=== PATIENT | male | born 1980 | race Caucasian/White ===

== ENCOUNTER 2019-08-19 16:58 | Emergency (ER) | payer OTHER ==
[~2019-08-19] VITALS: Ht 172.7 cm; Wt 108.9 kg
--- NOTE | 2019-08-19 17:27 | NUR ---
Patient ambulated with stable gait. A/Ox4. Patient came for c/o asthma exacerbation, reports being on augmentin for the 10th day with no improvement, patient on steroids and albuterol inhaler is not working at home. Respiratory even and unlabored, wheezing noted in the right lobes. Denies any cp, n/v/d. Patient in bed at lowest position, sr upx2, call light within reach. Fall precautions implemented per protocol.
--- NOTE | 2019-08-19 17:29 | NUR ---
ERMD at bedside for MSE
[2019-08-19] MEDS ORDERED: predniSONE 20 MG TABLET ONE (17:37)
[2019-08-19] MEDS ORDERED: IPRATROPIUM BROMIDE 0.5 MG/2.5 ML NEBU ONE (17:44)
[2019-08-19] MEDS ORDERED: IPRATROPIUM BROMIDE 0.5 MG/2.5 ML NEBU NEB ONE (17:45)
[2019-08-19] MEDS ORDERED: predniSONE 20 MG TABLET PO ONE (17:45)
--- NOTE | 2019-08-19 18:10 | NUR ---
Patient discharged to home in stable conditon. Written and verbal after care instructions given. Patient verbalizes understanding of instructions. Patient ambulated with stable gait.
[2019-08-19 18:11] VITALS: BP 135/63
== END 2019-08-19 18:11 | disposition home or self-care (01) ==
LOC: ER 17:01
DX: J45.901 Unspecified asthma with (acute) exacerbation (principal)
CPT/HCPCS: 71045; 94640; 99283; J7512; A4663; J3590